=== PATIENT | male | born 2000 | race Caucasian/White ===

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

== ENCOUNTER 2024-04-30 08:59 | Inpatient (IN) ==
[2024-04-30 09:28] VITALS: BMI 20.9
--- NOTE | 2024-04-30 10:03 | DR.ABDMALE ---
HPI Time seen Time Seen by Provider: 04/30/24 09:53 PCP Primary Care Physician: nflinsey Complaint Chief Complaint:: Pt c/o lower abdominal pain x3 days, states pain increases with movement, 6/10; 4/10 at rest. Denies n/v/d; last BM 04/26/24. He states pain radiates around to right flank and describes pain as "burning" Self Treatment fo Chief Complaint: Pt was seen in ER 04/25/24, treated for Crohn's w/ antibiotics and prednisone. States he has completed the steroids, cont to take antibiotics. He took an "old hydrocodone" from a previous visit a few months ago around 1200 this AM, which helped "a little" to relieve pain COVID-19 Coronavirus risk:travel/contact w/high risk person: No Has patient experienced Coronavirus symptoms: No Source History provided by:: patient Mode of arrival Mode of Arrival: Ambulatory Timing Onset of Chief Complaint: 04/27/24 PMH PMH Past Medical History: Yes Past Medical History Comment: Crohn's disease Past Surgical History: Yes Surgical History: Tonsillectomy and Other Family History History of Family Medical Conditions: Yes Family Medical History: Hypertension Social History Does patient currently use any type of tobacco product: Yes Have you used tobacco products in the last 12 months: Yes Type of Tobacco Use: Vape Does any household member use tobacco: No Alcohol Use: Occasionally Do you use any recreational Drugs:: No Lives With: Family Lives Where: Home Travel Risk Coronavirus risk:travel/contact w/high risk person: No Has patient experienced Coronavirus symptoms: No Infectious screening In the last 2 months have you had wt loss of >10#?: NO Have you had fever, night sweats or hemotysis?: No Have you traveled outside the country in the last 6 months?: No Isolation: Standard PE Vital Signs Vital Signs: Temp Pulse Resp BP Pulse Ox O2 Del Method 04/30/24 15:03 18 04/30/24 10:18 18 04/30/24 08:59 98.8 F 97 H 16 133/80 100 Room Air ROR Labs Reviewed 04/30/24 10:15 04/30/24 10:15 Laboratory: WBC 15.4 X10^3/uL (3.6-10.0) H 04/30/24 10:15 RBC 5.19 X10^6/uL (4.7-6.0) 04/30/24 10:15 Hgb 14.6 g/dL (13.5-18.0) 04/30/24 10:15 Hct 43.2 % (42.0-54.0) 04/30/24 10:15 MCV 83.4 fL (80.0-100.0) 04/30/24 10:15 MCH 28.1 pg (27.0-34.0) 04/30/24 10:15 MCHC 33.7 g/dL (33.0-35.0) 04/30/24 10:15 RDW 13.4 % (11.6-16.5) 04/30/24 10:15 Plt Count 496 X10^3/uL (150.0-450.0) H 04/30/24 10:15 MPV 6.9 fL (7.4-11.0) L 04/30/24 10:15 Neut % (Auto) 85.6 % (42.0-75.0) H 04/30/24 10:15 Lymph % (Auto) 6.4 % (21.0-51.0) L 04/30/24 10:15 [place] % (Auto) 7.3 % (0.0-13.0) 04/30/24 10:15 Eos % (Auto) 0.5 % (0.9-2.9) L 04/30/24 10:15 Baso % (Auto) 0.2 % (0.2-1.0) 04/30/24 10:15 Neut # (Auto) 13.1 x10^3/uL (2.2-4.8) H 04/30/24 10:15 Lymph # (Auto) 1.0 X10^3/uL (1.3-2.9) L 04/30/24 10:15 [place] # (Auto) 1.1 x10^3/uL (0.3-0.8) H 04/30/24 10:15 Eos # (Auto) 0.1 x10^3/uL (0.0-0.2) 04/30/24 10:15 Baso # (Auto) 0.0 X10^3/uL (0.0-0.1) 04/30/24 10:15 Absolute Nucleated RBC 0.0 /100WBC 04/30/24 10:15 Sodium 140 mmol/L (136-145) 04/30/24 10:15 Corrected Sodium TNP 04/30/24 10:15 Potassium 3.5 mmol/L (3.5-5.1) 04/30/24 10:15 Chloride 98 mmol/L (98-107) 04/30/24 10:15 Carbon Dioxide 31.2 mmol/L (21-32) 04/30/24 10:15 BUN 16 mg/dL (7-18) 04/30/24 10:15 Creatinine 1.02 mg/dL (0.70-1.30) 04/30/24 10:15 Est GFR (MDRD) Af Amer > 60 (>60) 04/30/24 10:15 Est GFR (MDRD) Non-Af > 60 (>60) 04/30/24 10:15 Glucose 88 mg/dL (65-99) 04/30/24 10:15 Calcium 9.3 mg/dL (8.5-10.1) 04/30/24 10:15 Corrected Calcium TNP 04/30/24 10:15 Total Bilirubin 0.30 mg/dL (0.2-1.0) 04/30/24 10:15 AST 26 Units/L (15-37) 04/30/24 10:15 ALT 63 Units/L (12-78) 04/30/24 10:15 Alkaline Phosphatase 157 Units/L (46-116) H 04/30/24 10:15 Total Protein 8.4 g/dL (6.4-8.2) H 04/30/24 10:15 Albumin 3.5 g/dL (3.4-5.0) 04/30/24 10:15 Globulin 4.9 g/dL (2.5-4.5) H 04/30/24 10:15 Albumin/Globulin Ratio 0.7 Ratio (1.1-2.1) L 04/30/24 10:15 Amylase 117 Units/L (25-115) H 04/30/24 10:15 Lipase 93 Units/L (16-77) H 04/30/24 10:15 Specimen Type Clean catch urine 04/30/24 10:10 Urine Color Dark yellow (YELLOW) 04/30/24 10:10 Urine Appearance Clear (CLEAR) 04/30/24 10:10 Urine pH 6.0 (5.0 - 8.0) 04/30/24 10:10 Ur Specific [place] 1.025 (1.000-1.030) 04/30/24 10:10 Urine Protein 1+ (NEGATIVE) 04/30/24 10:10 Urine Glucose (UA) Negative (NEGATIVE) 04/30/24 10:10 Urine Ketones Negative (NEGATIVE) 04/30/24 10:10 Urine Blood Negative (NEGATIVE) 04/30/24 10:10 Urine Nitrite Negative (NEGATIVE) 04/30/24 10:10 Urine Bilirubin Negative (NEGATIVE) 04/30/24 10:10 Urine Urobilinogen 1+ (NORMAL) 04/30/24 10:10 Ur Leukocyte Esterase 1+ (NEGATIVE) 04/30/24 10:10 Urine RBC None seen /HPF (0-3) 04/30/24 10:10 Urine WBC 0-2 /HPF (0-5) 04/30/24 10:10 Ur Squamous Epith Cells Rare /HPF (NEGATIVE) 04/30/24 10:10 Urine Bacteria Trace /HPF (NEGATIVE) 04/30/24 10:10 Urine Mucus Moderate /HPF (NEGATIVE) 04/30/24 10:10 Ur Culture Indicated? No/not indicated 04/30/24 10:10 Opioid Opioid Risk Tool Age (Mario box if 16-45): Yes History of Preadolescent Sexual Abuse: No Total: 1 Total Score Risk Category: Low Risk Copyright: Edenilson HALE predicting aberrant behaviors Discharge Plan Diagnosis Discharge Problem: Abdominal pain, Inflammatory bowel diseases (IBD), Acute appendicitis, Intestinal abscess Discharge Plan Patient Disposition: ADMITTED INPATIENT Condition: Stable Orders to Discharge Patient Discharge Orders: Transfer (Routine); Ordered 04/30/24 Ordered By: CIERA TITUS
[2024-04-30] MEDS: NS 1,000 ML IV 1,000 ML IV ONE (10:17)
[2024-04-30] MEDS: ZOFRAN INJ 4 MG VIAL IVP ONE (10:17)
[2024-04-30] MEDS: DEMEROL INJ IVP ONE (10:18)
[2024-04-30 10:19] LABS: BILIRUBIN,URINE NEGATIVE (NEGATIVE); BLOOD/HEMOGLOBIN,URINE NEGATIVE (NEGATIVE); GLUCOSE, URINE NEGATIVE (NEGATIVE); KETONES,URINE NEGATIVE (NEGATIVE); LEUKOCYTE ESTERASE ,URINE 1+ (NEGATIVE); NITRITES,URINE NEGATIVE (NEGATIVE); PROTEIN,URINE 1+ (NEGATIVE); UROBILINOGEN,URINE 1+ (NORMAL)
[2024-04-30 10:21] LABS: BASOPHILS % (AUTO) 0.2 % (0.2-1.0); EOSINOPHILS # (AUTO) 0.1 x10^3/uL (0.0-0.2); EOSINOPHILS % (AUTO) 0.5 % (0.9-2.9); HEMATOCRIT 43.2 % (42.0-54.0); HEMOGLOBIN 14.6 g/dL (13.5-18.0); LYMPHOCYTES % (AUTO) 6.4 % (21.0-51.0); MEAN CORPUSCULAR HEMOGLOBIN 28.1 pg (27.0-34.0); MEAN CORPUSCULAR HGB CONC 33.7 g/dL (33.0-35.0); MEAN CORPUSCULAR VOLUME 83.4 fL (80.0-100.0); MEAN PLATELET VOLUME 6.9 fL (7.4-11.0); MONOCYTES # (AUTO) 1.1 x10^3/uL (0.3-0.8); MONOCYTES % (AUTO) 7.3 % (0.0-13.0); NEUTROPHILS # (AUTO) 13.1 x10^3/uL (2.2-4.8); NEUTROPHILS % (AUTO) 85.6 % (42.0-75.0); PLATELET COUNT 496 X10^3/uL (150.0-450.0); RED BLOOD COUNT 5.19 X10^6/uL (4.7-6.0); RED CELL DISTRIBUTION WIDTH 13.4 % (11.6-16.5); WHITE BLOOD COUNT 15.4 X10^3/uL (3.6-10.0)
[2024-04-30 10:28] LABS: APPEARANCE,URINE CLEAR (CLEAR); BACTERIA,URINE TRACE /HPF (NEGATIVE); COLOR,URINE DARK YELLOW (YELLOW); RBC,URINE NONE SEEN /HPF (0-3); SQUAMOUS EPITHELIAL CELL,UR RARE /HPF (NEGATIVE)
[2024-04-30 10:33] LABS: ALANINE AMINOTRANSFERASE 63 Units/L (12-78); ALBUMIN 3.5 g/dL (3.4-5.0); ALKALINE PHOSPHATASE 157 Units/L (46-116); ASPARTATE AMINO TRANSFERASE 26 Units/L (15-37); BLOOD UREA NITROGEN 16 mg/dL (7-18); CALCIUM 9.3 mg/dL (8.5-10.1); CARBON DIOXIDE 31.2 mmol/L (21-32); CHLORIDE 98 mmol/L (98-107); CREATININE 1.02 mg/dL (0.70-1.30); GLUCOSE 88 mg/dL (65-99); POTASSIUM 3.5 mmol/L (3.5-5.1); SODIUM 140 mmol/L (136-145); TOTAL PROTEIN 8.4 g/dL (6.4-8.2); eGFR NON BLACK RACES > 60 (>60)
[2024-04-30 11:52] LABS: AMYLASE 117 Units/L (25-115); LIPASE 93 Units/L (16-77)
[2024-04-30] MEDS: ZOSYN VIAL 4.5 GRAMS 4.5 G in NS 100 ML IV 100 ML IV ONE (14:57)
[2024-04-30] MEDS: DILAUDID INJ IVP ONE (15:03)
[2024-04-30] MEDS: READI-CAT 2 ONE (16:18)
[2024-04-30] MEDS: DILAUDID INJ IVP PRN (17:18)
[2024-04-30] MEDS: D5 1/2 NS 1,000 ML 1,000 ML IV SCH (17:21)
[2024-04-30] MEDS: NS 500 ML IV 500 ML IV ONE (17:39)
[2024-04-30] MEDS: OMNIPAQUE 350 mg/mL 100 mL BTL 100 ML ONE (17:43)
--- NOTE | 2024-04-30 18:17 | CT ---
EXAM:ABDCMEN/PELVIS WITH CONHISTORY:c/o lower abd pain x3 days, states pain increases with movement, 6/10; 4/10 at rest. Denies n/v/d; last BM 04/26/24. He states pain radiates around to right flank and describes pain as "burning";COMPARISON:04/25/2024.TECHNIQUE: r axial, coronal, and sagittal CT images were generated.FINDINGS:The lung bases are clear without effusion. Heart size is normal. The liver, gallbladder, pancreas, adrenal glands, and both kidneys are normal. The spleen is enlarged at 14.5 cm. There is urinary bladder wall thickening. Prostate measures 4.9 cm in diameter. The stomach is normal. The proximal small bowel loops are normal. Terminal ileal loops are severely thickened with narrowing of the lumen and induration of the surrounding fat. There appears to be a loculated pocket of fluid with some gas bubbles along the anterior abdominal wall which could be an abscess or fistula from the bowel. The appendix is not identified. There is some involvement of the sigmoid colon with the pelvic inflammation. There is trace free fluid in the pelvis.IMPRESSION:Severe inflammation in the right lower quadrant which appears to be involving the terminal ileum and this is suggestive of Crohn's disease. There is a non-specific loculation of fluid near the anterior abdominal wall with gas and fluid and this could be a fistula or abscess.THIS IS AN ELECTRONICALLY VERIFIED FINAL REPORT04/30/2024 6:14 PM - Electronically signed by Christiano Gaviria MD
[2024-04-30] MEDS: FLAGYL IV PREMIX 500 MG BAG 500 MG/100 ML BAG IV SCH (20:16)
[2024-04-30] MEDS: ZOSYN VIAL 4.5 GRAMS 4.5 G in NS 100 ML IV 100 ML IV SCH (21:05)
[2024-04-30] MEDS: NS 250 ML IV 25 ML IV PRN (21:06)
[2024-05-01] MEDS: TYLENOL 325 MG TAB PO PRN (04:11)
[2024-05-01 05:20] LABS: BASOPHILS # (AUTO) 0.1 X10^3/uL (0.0-0.1); BASOPHILS % (AUTO) 0.4 % (0.2-1.0); EOSINOPHILS % (AUTO) 0.3 % (0.9-2.9); HEMATOCRIT 35.3 % (42.0-54.0); LYMPHOCYTES # (AUTO) 0.8 X10^3/uL (1.3-2.9); MEAN CORPUSCULAR HGB CONC 33.9 g/dL (33.0-35.0); MEAN CORPUSCULAR VOLUME 82.7 fL (80.0-100.0); MEAN PLATELET VOLUME 7.2 fL (7.4-11.0); MONOCYTES # (AUTO) 1.5 x10^3/uL (0.3-0.8); NEUTROPHILS # (AUTO) 16.7 x10^3/uL (2.2-4.8); NEUTROPHILS % (AUTO) 87.3 % (42.0-75.0); PLATELET COUNT 416 X10^3/uL (150.0-450.0); RED BLOOD COUNT 4.26 X10^6/uL (4.7-6.0); RED CELL DISTRIBUTION WIDTH 13.3 % (11.6-16.5); WHITE BLOOD COUNT 19.1 X10^3/uL (3.6-10.0)
[2024-05-01 05:35] LABS: ALANINE AMINOTRANSFERASE 34 Units/L (12-78); ALBUMIN 2.5 g/dL (3.4-5.0); ALKALINE PHOSPHATASE 117 Units/L (46-116); ASPARTATE AMINO TRANSFERASE 11 Units/L (15-37); BLOOD UREA NITROGEN 15 mg/dL (7-18); CALCIUM 8.6 mg/dL (8.5-10.1); CARBON DIOXIDE 27.6 mmol/L (21-32); CHLORIDE 99 mmol/L (98-107); COR CA(FOR HYPOALB) 9.8 mg/dL (8.5-10.1); CREATININE 1.05 mg/dL (0.70-1.30); GLUCOSE 100 mg/dL (65-99); POTASSIUM 3.6 mmol/L (3.5-5.1); SODIUM 136 mmol/L (136-145); TOTAL PROTEIN 6.3 g/dL (6.4-8.2); eGFR NON BLACK RACES > 60 (>60)
[2024-05-01] MEDS: CONSULT PHARMACY - POTASSIUM & MAGNESIUM XX SCH (07:37)
[2024-05-01] MEDS: SOLU-Medrol 125 MG VIAL IVP SCH (08:39)
[2024-05-01] MEDS: KLOR-CON PO SCH (08:40)
[2024-05-01] MEDS: LOVENOX INJ 40 MG SYR SC SCH (08:40)
[2024-05-01] MEDS: PROTONIX INJ 40 MG VIAL IVP SCH (08:40)
--- NOTE | 2024-05-01 08:49 | DR.PROGNOT ---
HOSPITAL PROGRESS NOTE Progress Note for Day of: Progress Note Date: 05/01/24 Chief Complaint Chief Complaint: Still complaining of right lower quadrant pain but less than yesterday, moderate nausea but no vomiting, no bowel movement or rectal bleeding, passing flatus. White count is 19.1, hemoglobin 12, platelet count is 416, sed rate is 24, CRP 87, bilirubin 1.5, liver function tests are normal. CAT scan with contrast showed Crohn disease involving the terminal ileum, nonspecific fluid collection right lower quadrant, Soft and flat abdomen with localized right lower quadrant tenderness. Past Medical Family Social History Allergies: Allergies infliximab [From Remicade] Adverse Reaction (Severe, Verified 04/30/24 09:28) Vital Signs Vital Signs: Vital Signs Temperature 98.6 F Temperature 101.2 F Pulse Rate [Brachial] 108 Respiratory Rate 20 Respiratory Rate 22 Respiratory Rate 22 Respiratory Rate 22 Respiratory Rate 20 Blood Pressure [Right Arm] 111/59 O2 Sat by Pulse Oximetry 97 Physical Exam Oriented: Normal Eyes: Normal Ear: Normal Nose: Blood Throat: Normal Respiratory: Normal Cardiovascular: Normal, Irregular, Systolic and Edema Speech Pattern: Clear and Appropriate Laboratory and Diagnostics 05/01/24 04:15 05/01/24 04:15 Labs: Laboratory WBC 19.1 X10^3/uL (3.6-10.0) H 05/01/24 04:15 RBC 4.26 X10^6/uL (4.7-6.0) L 05/01/24 04:15 Hgb 12.0 g/dL (13.5-18.0) L D 05/01/24 04:15 Hct 35.3 % (42.0-54.0) L 05/01/24 04:15 MCV 82.7 fL (80.0-100.0) 05/01/24 04:15 MCH 28.0 pg (27.0-34.0) 05/01/24 04:15 MCHC 33.9 g/dL (33.0-35.0) 05/01/24 04:15 RDW 13.3 % (11.6-16.5) 05/01/24 04:15 Plt Count 416 X10^3/uL (150.0-450.0) 05/01/24 04:15 MPV 7.2 fL (7.4-11.0) L 05/01/24 04:15 Neut % (Auto) 87.3 % (42.0-75.0) H 05/01/24 04:15 Lymph % (Auto) 4.0 % (21.0-51.0) L 05/01/24 04:15 [place] % (Auto) 8.0 % (0.0-13.0) 05/01/24 04:15 Eos % (Auto) 0.3 % (0.9-2.9) L 05/01/24 04:15 Baso % (Auto) 0.4 % (0.2-1.0) 05/01/24 04:15 Neut # (Auto) 16.7 x10^3/uL (2.2-4.8) H 05/01/24 04:15 Lymph # (Auto) 0.8 X10^3/uL (1.3-2.9) L 05/01/24 04:15 [place] # (Auto) 1.5 x10^3/uL (0.3-0.8) H 05/01/24 04:15 Eos # (Auto) 0.0 x10^3/uL (0.0-0.2) 05/01/24 04:15 Baso # (Auto) 0.1 X10^3/uL (0.0-0.1) 05/01/24 04:15 Absolute Nucleated RBC 0.0 /100WBC 05/01/24 04:15 ESR 24 MM/HOUR (0-15) H 04/30/24 19:43 Sodium 136 mmol/L (136-145) 05/01/24 04:15 Corrected Sodium TNP 05/01/24 04:15 Potassium 3.6 mmol/L (3.5-5.1) 05/01/24 04:15 Chloride 99 mmol/L (98-107) 05/01/24 04:15 Carbon Dioxide 27.6 mmol/L (21-32) 05/01/24 04:15 BUN 15 mg/dL (7-18) 05/01/24 04:15 Creatinine 1.05 mg/dL (0.70-1.30) 05/01/24 04:15 Est GFR (MDRD) Af Amer > 60 (>60) 05/01/24 04:15 Est GFR (MDRD) Non-Af > 60 (>60) 05/01/24 04:15 Glucose 100 mg/dL (65-99) H 05/01/24 04:15 Lactic Acid 0.5 mmol/L (0.4-2.0) 05/01/24 08:16 Calcium 8.6 mg/dL (8.5-10.1) 05/01/24 04:15 Corrected Calcium 9.8 mg/dL (8.5-10.1) 05/01/24 04:15 Magnesium 1.9 mg/dL (2.0-2.9) L 05/01/24 04:15 Total Bilirubin 1.50 mg/dL (0.2-1.0) H 05/01/24 04:15 AST 11 Units/L (15-37) L 05/01/24 04:15 ALT 34 Units/L (12-78) 05/01/24 04:15 Alkaline Phosphatase 117 Units/L (46-116) H 05/01/24 04:15 C-Reactive Protein 87.10 mg/L (0-3.0) H 04/30/24 10:15 Total Protein 6.3 g/dL (6.4-8.2) L 05/01/24 04:15 Albumin 2.5 g/dL (3.4-5.0) L 05/01/24 04:15 Globulin 3.8 g/dL (2.5-4.5) 05/01/24 04:15 Albumin/Globulin Ratio 0.7 Ratio (1.1-2.1) L 05/01/24 04:15 Amylase 117 Units/L (25-115) H 04/30/24 10:15 Lipase 93 Units/L (16-77) H 04/30/24 10:15 Specimen Type Clean catch urine 04/30/24 10:10 Urine Color Dark yellow (YELLOW) 04/30/24 10:10 Urine Appearance Clear (CLEAR) 04/30/24 10:10 Urine pH 6.0 (5.0 - 8.0) 04/30/24 10:10 Ur Specific [place] 1.025 (1.000-1.030) 04/30/24 10:10 Urine Protein 1+ (NEGATIVE) 04/30/24 10:10 Urine Glucose (UA) Negative (NEGATIVE) 04/30/24 10:10 Urine Ketones Negative (NEGATIVE) 04/30/24 10:10 Urine Blood Negative (NEGATIVE) 04/30/24 10:10 Urine Nitrite Negative (NEGATIVE) 04/30/24 10:10 Urine Bilirubin Negative (NEGATIVE) 04/30/24 10:10 Urine Urobilinogen 1+ (NORMAL) 04/30/24 10:10 Ur Leukocyte Esterase 1+ (NEGATIVE) 04/30/24 10:10 Urine RBC None seen /HPF (0-3) 04/30/24 10:10 Urine WBC 0-2 /HPF (0-5) 04/30/24 10:10 Ur Squamous Epith Cells Rare /HPF (NEGATIVE) 04/30/24 10:10 Urine Bacteria Trace /HPF (NEGATIVE) 04/30/24 10:10 Urine Mucus Moderate /HPF (NEGATIVE) 04/30/24 10:10 Ur Culture Indicated? No/not indicated 04/30/24 10:10 Assessment and Plan 1: Crohn disease terminal ileum, possible fluid collection or early abscess formation, this will be observed closely. Added steroid IV, full liquid, To obtain basic lab work, on IV steroids and IV antibiotics hopefully will avoid surgical intervention. Advance diet. Problem Patient Problems: Patient Problems (Updated 04/30/24 @ 15:40 by CIERA TITUS) Abdominal pain (Acute) R10.9 Inflammatory bowel diseases (IBD) (Acute) K52.9 Acute appendicitis (Acute) K35.80 Intestinal abscess (Acute) K63.0
[2024-05-01] MEDS: ZOFRAN INJ 4 MG VIAL IVP PRN (09:26)
[2024-05-01] MEDS: TYLENOL 325 MG TAB PO ONE (10:16)
--- NOTE | 2024-05-01 15:06 | DR.H&P ---
H&P History & Physical for Day of: H&P Date: 04/30/24 Chief Complaint Chief Complaint: RIGHT LOWER ABDOMINAL PAIN, FEVER, DIARRHEA History of Present Illness History of Present Illness: Pt was seen in ER 04/25/24, treated for Crohn's w/ antibiotics and prednisone. States he has completed the steroids, cont to take antibiotics. He took an "old hydrocodone" from a previous visit a few months ago around 1200 this AM, which helped "a little" to relieve pain. Last colonoscopy in [address] Adame Past Surgical History Surgical History: Tonsillectomy Family History Family Medical History: Hypertension Social History Does patient currently use any type of tobacco product: Yes Have you used tobacco products in the last 12 months: Yes Type of Tobacco Use: Vape Does any household member use tobacco: No Alcohol Use: Occasionally Drug Use: None Medications Home Medications: Home Medications Medication Instructions Recorded Confirmed Type NK 03/20/21 04/30/24 History Allergies Allergies Allergy/AdvReac Type Severity Reaction Status Date / Time infliximab [From Remicade] AdvReac Severe Verified 04/30/24 09:28 Labs 05/01/24 04:15 05/01/24 04:15 Labs: Laboratory WBC 19.1 X10^3/uL (3.6-10.0) H 05/01/24 04:15 RBC 4.26 X10^6/uL (4.7-6.0) L 05/01/24 04:15 Hgb 12.0 g/dL (13.5-18.0) L D 05/01/24 04:15 Hct 35.3 % (42.0-54.0) L 05/01/24 04:15 MCV 82.7 fL (80.0-100.0) 05/01/24 04:15 MCH 28.0 pg (27.0-34.0) 05/01/24 04:15 MCHC 33.9 g/dL (33.0-35.0) 05/01/24 04:15 RDW 13.3 % (11.6-16.5) 05/01/24 04:15 Plt Count 416 X10^3/uL (150.0-450.0) 05/01/24 04:15 MPV 7.2 fL (7.4-11.0) L 05/01/24 04:15 Neut % (Auto) 87.3 % (42.0-75.0) H 05/01/24 04:15 Lymph % (Auto) 4.0 % (21.0-51.0) L 05/01/24 04:15 [place] % (Auto) 8.0 % (0.0-13.0) 05/01/24 04:15 Eos % (Auto) 0.3 % (0.9-2.9) L 05/01/24 04:15 Baso % (Auto) 0.4 % (0.2-1.0) 05/01/24 04:15 Neut # (Auto) 16.7 x10^3/uL (2.2-4.8) H 05/01/24 04:15 Lymph # (Auto) 0.8 X10^3/uL (1.3-2.9) L 05/01/24 04:15 [place] # (Auto) 1.5 x10^3/uL (0.3-0.8) H 05/01/24 04:15 Eos # (Auto) 0.0 x10^3/uL (0.0-0.2) 05/01/24 04:15 Baso # (Auto) 0.1 X10^3/uL (0.0-0.1) 05/01/24 04:15 Absolute Nucleated RBC 0.0 /100WBC 05/01/24 04:15 ESR 24 MM/HOUR (0-15) H 04/30/24 19:43 Sodium 136 mmol/L (136-145) 05/01/24 04:15 Corrected Sodium TNP 05/01/24 04:15 Potassium 3.6 mmol/L (3.5-5.1) 05/01/24 04:15 Chloride 99 mmol/L (98-107) 05/01/24 04:15 Carbon Dioxide 27.6 mmol/L (21-32) 05/01/24 04:15 BUN 15 mg/dL (7-18) 05/01/24 04:15 Creatinine 1.05 mg/dL (0.70-1.30) 05/01/24 04:15 Est GFR (MDRD) Af Amer > 60 (>60) 05/01/24 04:15 Est GFR (MDRD) Non-Af > 60 (>60) 05/01/24 04:15 Glucose 100 mg/dL (65-99) H 05/01/24 04:15 Lactic Acid 0.5 mmol/L (0.4-2.0) 05/01/24 08:16 Calcium 8.6 mg/dL (8.5-10.1) 05/01/24 04:15 Corrected Calcium 9.8 mg/dL (8.5-10.1) 05/01/24 04:15 Magnesium 1.9 mg/dL (2.0-2.9) L 05/01/24 04:15 Total Bilirubin 1.50 mg/dL (0.2-1.0) H 05/01/24 04:15 AST 11 Units/L (15-37) L 05/01/24 04:15 ALT 34 Units/L (12-78) 05/01/24 04:15 Alkaline Phosphatase 117 Units/L (46-116) H 05/01/24 04:15 C-Reactive Protein 87.10 mg/L (0-3.0) H 04/30/24 10:15 Total Protein 6.3 g/dL (6.4-8.2) L 05/01/24 04:15 Albumin 2.5 g/dL (3.4-5.0) L 05/01/24 04:15 Globulin 3.8 g/dL (2.5-4.5) 05/01/24 04:15 Albumin/Globulin Ratio 0.7 Ratio (1.1-2.1) L 05/01/24 04:15 Amylase 117 Units/L (25-115) H 04/30/24 10:15 Lipase 93 Units/L (16-77) H 04/30/24 10:15 Specimen Type Clean catch urine 04/30/24 10:10 Urine Color Dark yellow (YELLOW) 04/30/24 10:10 Urine Appearance Clear (CLEAR) 04/30/24 10:10 Urine pH 6.0 (5.0 - 8.0) 04/30/24 10:10 Ur Specific [place] 1.025 (1.000-1.030) 04/30/24 10:10 Urine Protein 1+ (NEGATIVE) 04/30/24 10:10 Urine Glucose (UA) Negative (NEGATIVE) 04/30/24 10:10 Urine Ketones Negative (NEGATIVE) 04/30/24 10:10 Urine Blood Negative (NEGATIVE) 04/30/24 10:10 Urine Nitrite Negative (NEGATIVE) 04/30/24 10:10 Urine Bilirubin Negative (NEGATIVE) 04/30/24 10:10 Urine Urobilinogen 1+ (NORMAL) 04/30/24 10:10 Ur Leukocyte Esterase 1+ (NEGATIVE) 04/30/24 10:10 Urine RBC None seen /HPF (0-3) 04/30/24 10:10 Urine WBC 0-2 /HPF (0-5) 04/30/24 10:10 Ur Squamous Epith Cells Rare /HPF (NEGATIVE) 04/30/24 10:10 Urine Bacteria Trace /HPF (NEGATIVE) 04/30/24 10:10 Urine Mucus Moderate /HPF (NEGATIVE) 04/30/24 10:10 Ur Culture Indicated? No/not indicated 04/30/24 10:10 Review of Systems Constitutional: Fever and Weakness Eyes: No Symptoms Reported ENT: No Symptoms Reported Respiratory: No Symptoms Reported Cardiovascular: No Symptoms Reported Gastrointestinal: Abdominal Pain Genitourinary: Frequency Musculoskeletal: Back Pain (right side back pain) Skin: No Symptoms Reported Neurological: No Symptoms Reported Physical Exam Vital Signs: Vital Signs Temperature 97.9 F Temperature 98.1 F Pulse Rate [Brachial] 90 Pulse Rate [Brachial] 86 Respiratory Rate 18 Respiratory Rate 20 Respiratory Rate 20 Respiratory Rate 18 Blood Pressure [Right Arm] 121/65 Blood Pressure [Right Arm] 116/64 O2 Sat by Pulse Oximetry 98 O2 Sat by Pulse Oximetry 99 Oriented: Normal Eyes: Normal Ear: Normal Nose: Normal Throat: Dry Respiratory: RLL Diminished Cardiovascular: Normal : Normal Auscultation: Bowel Sounds: Increased Palpation: Normal Tenderness: Diffuse Skin: Decreased [place] Musculoskeletal: Normal Psychiatric: Normal Mood Description: Calm Affect: Normal Speech Pattern: Clear and Appropriate Assessment/Plan (1) Exacerbation of Crohn's disease: Status: Acute Plan: admit, surgical consult IV HYDRATION, PAIN CONTROL CT ABD/PELVIS ON ADMISSION OBTAIN LAST COLONOSCOPY REPORT VERIFY HOME MEDICATIONS (2) Fever: Status: Acute
[2024-05-02 06:32] LABS: BASOPHILS % (AUTO) 0.2 % (0.2-1.0); HEMATOCRIT 32.6 % (42.0-54.0); HEMOGLOBIN 11.1 g/dL (13.5-18.0); LYMPHOCYTES # (AUTO) 0.5 X10^3/uL (1.3-2.9); LYMPHOCYTES % (AUTO) 4.2 % (21.0-51.0); MEAN CORPUSCULAR HEMOGLOBIN 28.2 pg (27.0-34.0); MEAN CORPUSCULAR VOLUME 82.8 fL (80.0-100.0); MEAN PLATELET VOLUME 7.4 fL (7.4-11.0); MONOCYTES # (AUTO) 0.2 x10^3/uL (0.3-0.8); MONOCYTES % (AUTO) 2.1 % (0.0-13.0); NEUTROPHILS # (AUTO) 10.7 x10^3/uL (2.2-4.8); NEUTROPHILS % (AUTO) 93.5 % (42.0-75.0); PLATELET COUNT 397 X10^3/uL (150.0-450.0); RED BLOOD COUNT 3.94 X10^6/uL (4.7-6.0); WHITE BLOOD COUNT 11.5 X10^3/uL (3.6-10.0)
[2024-05-02 06:43] LABS: ALANINE AMINOTRANSFERASE 44 Units/L (12-78); ALBUMIN 2.4 g/dL (3.4-5.0); ALKALINE PHOSPHATASE 157 Units/L (46-116); ASPARTATE AMINO TRANSFERASE 16 Units/L (15-37); BLOOD UREA NITROGEN 12 mg/dL (7-18); CALCIUM 9.1 mg/dL (8.5-10.1); CARBON DIOXIDE 29.9 mmol/L (21-32); CHLORIDE 103 mmol/L (98-107); COR CA(FOR HYPOALB) 10.4 mg/dL (8.5-10.1); COR NA(FOR HYPERGLY) 142 mmol/L (136-145); CREATININE 0.86 mg/dL (0.70-1.30); GLUCOSE 178 mg/dL (65-99); SODIUM 140 mmol/L (136-145); TOTAL PROTEIN 6.4 g/dL (6.4-8.2); eGFR NON BLACK RACES > 60 (>60)
[2024-05-02 07:19] LABS: BAND NEUTROPHILS % 4 % (0-10); PLATELET MORPHOLOGY COMMENT NORMAL (NORMAL)
--- NOTE | 2024-05-02 07:48 | DR.PROGNOT ---
HOSPITAL PROGRESS NOTE Progress Note for Day of: Progress Note Date: 05/02/24 Chief Complaint Chief Complaint: less pain today, , no bowel movement or rectal bleeding, passing flatus. White count is 11.5 hemoglobin 12, platelet count is 416, sed rate is 24, CRP 87, bilirubin 1.5, liver function tests are normal. seems to be improving on steroids and ABT. afebrile . Past Medical Family Social History Allergies: Allergies infliximab [From Remicade] Adverse Reaction (Severe, Verified 04/30/24 09:28) Vital Signs Vital Signs: Vital Signs Temperature 98.3 F Temperature 98 F Pulse Rate [Brachial] 67 Pulse Rate [Brachial] 84 Respiratory Rate 21 Respiratory Rate 20 Blood Pressure [Right Arm] 93/56 Blood Pressure [Right Arm] 120/56 O2 Sat by Pulse Oximetry 97 O2 Sat by Pulse Oximetry 98 Physical Exam Oriented: Normal Eyes: Normal Ear: Normal Nose: Normal Throat: Dry Respiratory: Normal Cardiovascular: Normal : Normal GI:Auscultation: Increased GI:Palpation: Normal GI: Tenderness: Diffuse and Other (soft with RLQ fullness and tenderness , BS+) Skin: Decreased Turgur Musculoskeletal: Normal Psychiatric: Normal Mood Description: Calm Affect: Normal Speech Pattern: Clear and Appropriate Laboratory and Diagnostics 05/02/24 05:11 05/02/24 05:11 Labs: Laboratory WBC 11.5 X10^3/uL (3.6-10.0) H 05/02/24 05:11 RBC 3.94 X10^6/uL (4.7-6.0) L 05/02/24 05:11 Hgb 11.1 g/dL (13.5-18.0) L 05/02/24 05:11 Hct 32.6 % (42.0-54.0) L 05/02/24 05:11 MCV 82.8 fL (80.0-100.0) 05/02/24 05:11 MCH 28.2 pg (27.0-34.0) 05/02/24 05:11 MCHC 34.0 g/dL (33.0-35.0) 05/02/24 05:11 RDW 13.0 % (11.6-16.5) 05/02/24 05:11 Plt Count 397 X10^3/uL (150.0-450.0) 05/02/24 05:11 Plt Count Comment Adequate (ADEQUATE) 05/02/24 05:11 MPV 7.4 fL (7.4-11.0) 05/02/24 05:11 Neut % (Auto) 93.5 % (42.0-75.0) H 05/02/24 05:11 Lymph % (Auto) 4.2 % (21.0-51.0) L 05/02/24 05:11 [place] % (Auto) 2.1 % (0.0-13.0) 05/02/24 05:11 Eos % (Auto) 0.0 % (0.9-2.9) L 05/02/24 05:11 Baso % (Auto) 0.2 % (0.2-1.0) 05/02/24 05:11 Neut # (Auto) 10.7 x10^3/uL (2.2-4.8) H 05/02/24 05:11 Lymph # (Auto) 0.5 X10^3/uL (1.3-2.9) L 05/02/24 05:11 [place] # (Auto) 0.2 x10^3/uL (0.3-0.8) L 05/02/24 05:11 Eos # (Auto) 0.0 x10^3/uL (0.0-0.2) 05/02/24 05:11 Baso # (Auto) 0.0 X10^3/uL (0.0-0.1) 05/02/24 05:11 Absolute Nucleated RBC 0.0 /100WBC 05/02/24 05:11 Total Counted 100 05/02/24 05:11 Neutrophils % (Manual) 90 % (39-76) H 05/02/24 05:11 Band Neutrophils % 4 % (0-10) 05/02/24 05:11 Lymphocytes % (Manual) 4 % (13-43) L 05/02/24 05:11 Monocytes % (Manual) 2 % (4-9) L 05/02/24 05:11 Plt Morphology Comment Normal (NORMAL) 05/02/24 05:11 RBC Morphology Normal (NORMAL) 05/02/24 05:11 ESR 24 MM/HOUR (0-15) H 04/30/24 19:43 Sodium 140 mmol/L (136-145) 05/02/24 05:11 Corrected Sodium 142 mmol/L (136-145) 05/02/24 05:11 Potassium 4.0 mmol/L (3.5-5.1) 05/02/24 05:11 Chloride 103 mmol/L (98-107) 05/02/24 05:11 Carbon Dioxide 29.9 mmol/L (21-32) 05/02/24 05:11 BUN 12 mg/dL (7-18) 05/02/24 05:11 Creatinine 0.86 mg/dL (0.70-1.30) 05/02/24 05:11 Est GFR (MDRD) Af Amer > 60 (>60) 05/02/24 05:11 Est GFR (MDRD) Non-Af > 60 (>60) 05/02/24 05:11 Glucose 178 mg/dL (65-99) H 05/02/24 05:11 Lactic Acid 0.5 mmol/L (0.4-2.0) 05/01/24 08:16 Calcium 9.1 mg/dL (8.5-10.1) 05/02/24 05:11 Corrected Calcium 10.4 mg/dL (8.5-10.1) H 05/02/24 05:11 Magnesium 1.9 mg/dL (2.0-2.9) L 05/01/24 04:15 Total Bilirubin 0.40 mg/dL (0.2-1.0) 05/02/24 05:11 AST 16 Units/L (15-37) 05/02/24 05:11 ALT 44 Units/L (12-78) 05/02/24 05:11 Alkaline Phosphatase 157 Units/L (46-116) H 05/02/24 05:11 C-Reactive Protein 87.10 mg/L (0-3.0) H 04/30/24 10:15 Total Protein 6.4 g/dL (6.4-8.2) 05/02/24 05:11 Albumin 2.4 g/dL (3.4-5.0) L 05/02/24 05:11 Globulin 4.0 g/dL (2.5-4.5) 05/02/24 05:11 Albumin/Globulin Ratio 0.6 Ratio (1.1-2.1) L 05/02/24 05:11 Amylase 117 Units/L (25-115) H 04/30/24 10:15 Lipase 93 Units/L (16-77) H 04/30/24 10:15 Specimen Type Clean catch urine 04/30/24 10:10 Urine Color Dark yellow (YELLOW) 04/30/24 10:10 Urine Appearance Clear (CLEAR) 04/30/24 10:10 Urine pH 6.0 (5.0 - 8.0) 04/30/24 10:10 Ur Specific [place] 1.025 (1.000-1.030) 04/30/24 10:10 Urine Protein 1+ (NEGATIVE) 04/30/24 10:10 Urine Glucose (UA) Negative (NEGATIVE) 04/30/24 10:10 Urine Ketones Negative (NEGATIVE) 04/30/24 10:10 Urine Blood Negative (NEGATIVE) 04/30/24 10:10 Urine Nitrite Negative (NEGATIVE) 04/30/24 10:10 Urine Bilirubin Negative (NEGATIVE) 04/30/24 10:10 Urine Urobilinogen 1+ (NORMAL) 04/30/24 10:10 Ur Leukocyte Esterase 1+ (NEGATIVE) 04/30/24 10:10 Urine RBC None seen /HPF (0-3) 04/30/24 10:10 Urine WBC 0-2 /HPF (0-5) 04/30/24 10:10 Ur Squamous Epith Cells Rare /HPF (NEGATIVE) 04/30/24 10:10 Urine Bacteria Trace /HPF (NEGATIVE) 04/30/24 10:10 Urine Mucus Moderate /HPF (NEGATIVE) 04/30/24 10:10 Ur Culture Indicated? No/not indicated 04/30/24 10:10 FADY Screen Negative (NEGATIVE) 04/30/24 13:38 Assessment and Plan 1: Crohn disease of the terminal ileum, possible fluid collection or early abscess formation, this will be observed closely. To obtain basic lab work, on IV steroids and IV antibiotics . bland diet . Problem Patient Problems: Patient Problems Abdominal pain (Acute) R10.9 Inflammatory bowel diseases (IBD) (Acute) K52.9 Acute appendicitis (Acute) K35.80 Intestinal abscess (Acute) K63.0
[2024-05-03 05:47] LABS: BASOPHILS % (AUTO) 0.1 % (0.2-1.0); HEMATOCRIT 33.5 % (42.0-54.0); HEMOGLOBIN 11.2 g/dL (13.5-18.0); LYMPHOCYTES # (AUTO) 0.5 X10^3/uL (1.3-2.9); LYMPHOCYTES % (AUTO) 3.7 % (21.0-51.0); MEAN CORPUSCULAR HEMOGLOBIN 27.8 pg (27.0-34.0); MEAN CORPUSCULAR HGB CONC 33.5 g/dL (33.0-35.0); MEAN PLATELET VOLUME 7.3 fL (7.4-11.0); MONOCYTES # (AUTO) 0.4 x10^3/uL (0.3-0.8); MONOCYTES % (AUTO) 2.7 % (0.0-13.0); NEUTROPHILS # (AUTO) 13.6 x10^3/uL (2.2-4.8); NEUTROPHILS % (AUTO) 93.5 % (42.0-75.0); PLATELET COUNT 394 X10^3/uL (150.0-450.0); RED BLOOD COUNT 4.04 X10^6/uL (4.7-6.0); RED CELL DISTRIBUTION WIDTH 13.2 % (11.6-16.5); WHITE BLOOD COUNT 14.6 X10^3/uL (3.6-10.0)
[2024-05-03 06:00] LABS: ALANINE AMINOTRANSFERASE 33 Units/L (12-78); ALBUMIN 2.5 g/dL (3.4-5.0); ALKALINE PHOSPHATASE 136 Units/L (46-116); ASPARTATE AMINO TRANSFERASE 10 Units/L (15-37); BLOOD UREA NITROGEN 12 mg/dL (7-18); CALCIUM 8.7 mg/dL (8.5-10.1); CHLORIDE 107 mmol/L (98-107); COR CA(FOR HYPOALB) 9.9 mg/dL (8.5-10.1); COR NA(FOR HYPERGLY) 145 mmol/L (136-145); CREATININE 0.85 mg/dL (0.70-1.30); GLUCOSE 165 mg/dL (65-99); SODIUM 143 mmol/L (136-145); TOTAL PROTEIN 6.4 g/dL (6.4-8.2); eGFR NON BLACK RACES > 60 (>60)
[2024-05-03 06:18] LABS: BAND NEUTROPHILS % 4 % (0-10); PLATELET MORPHOLOGY COMMENT NORMAL (NORMAL)
[2024-05-03 12:07] VITALS: BP 116/58; PULSE 56; RESP 18; TEMP 97.6; O2SAT 100
--- NOTE | 2024-05-03 16:36 | DR.CONSULT ---
Consult - Consultation for Day of: Date: 05/03/24 (GI) - Chief Complaint Chief Complaint: Patient is a 24 y/o male who is referred for Crohn's. Patient is currently on IV antibiotics, including IV Flagyl. Currently feels better. Patient has been on Humira and Remicade in the past. However, quit because of insurance authorization problems. He has not been on any biologics for 2-3 years. Patient has known history of Crohns disease which was diagnosed on CT scan and being treated with steroids. The patient was followed by Dr. Jorge office and was supposed to have some further testing. The patient was in the emergency room three days ago and he had an abdominal and pelvic CT scan which showed inflammatory bowel disease and was placed on steroids. The patient came today with persistent pain in the right lower quadrant which was described by the patient as constant with episodes of. increased intensity. He denies nausea and vomiting. He has slightly loose bowel movements but he did not have any bowel movements for the past few days. The patient had some weight loss, about 20 lbs, over the past few months. - Past Surgical History Surgical History: Tonsillectomy - Family History Family Medical History: Hypertension - Social History Does patient currently use any type of tobacco product: Yes Have you used tobacco products in the last 12 months: Yes Type of Tobacco Use: Vape Does any household member use tobacco: No Alcohol Use: Occasionally Drug Use: None - Medications Home Medications: infliximab [From Remicade] Adverse Reaction (Severe, Verified 04/30/24 09:28) New Prescriptions ciprofloxacin HCl 500 mg tablet (Cipro) 500 mg PO Q12H #20 tabs 05/03/24 [Rx] metronidazole 375 mg capsule (Flagyl) 750 mg PO BID #40 caps 05/03/24 [Rx] prednisone 5 mg tablet,delayed release 10 mg PO BID #60 tabs 05/03/24 [Rx] - Review of Systems Constitutional: denies: No Symptoms Reported, See HPI, Fever, Chills, Sweats, Weakness, Malaise, Other Eyes: denies: No Symptoms Reported, See HPI, Pain, Vision Change, Conjunctivae Inflammation, Eyelid Inflammation, Redness, Other ENT: denies: No Symptoms Reported, See HPI, Ear Pain, Ear Discharge, Nose Pain, Nose Discharge, Nose Congestion, Mouth Pain, Mouth Swelling, Throat Pain, Throat Swelling, Other Respiratory: denies: No Symptoms Reported, See HPI, Cough, Dry, Shortness of Breath, Hemoptysis, SOB with Excertion, Pleuritic Pain, Sputum, Wheezing, Other Cardiovascular: denies: No Symptoms Reported, Chest Pain, See HPI, Palpitations, Orthopnea, Paroxysmal Noc. Dyspnea, Edema, Light Headedness, Other Gastrointestinal: Abdominal Pain. denies: No Symptoms Reported, See HPI, Nausea, Vomiting, Diarrhea, Constipation, Melena, Hematochezia, Other Genitourinary: No Symptoms Reported. denies: See HPI, Dysuria, Frequency, Incontinence, Hematuria, Retention, Other Musculoskeletal: No Symptoms Reported. denies: See HPI, Shoulder Pain, Arm Pain, Back Pain, Hand Pain, Leg Pain, Foot Pain, Neck Pain, Other Skin: No Symptoms Reported. denies: See HPI, Rash, Lesions, Jaundice, Bruising, Wound, Ecchymosis, Other Neurological: denies: No Symptoms Reported, See HPI, Weakness, Numbness, Incoordination, Change in Speech, Confusion, Seizures, Other - Physical Exam Vital Signs: Vital Signs Temperature 97.6 F Pulse Rate [Brachial] 56 Pulse Rate 86 Respiratory Rate 18 Blood Pressure [Right Arm] 116/58 O2 Sat by Pulse Oximetry 100 O2 Sat by Pulse Oximetry 99 Oriented: Normal. negative: Time, Person, Place, Not Oriented, Unable to test, Other Eyes: Normal. negative: Blurred Vision, Diplopia, Discharge, Pain, Redness, Photophobia, Other Ear: Normal. negative: Right, Left, Swelling, Ecchymosis, Hemotypanum, Abrasion, Laceration Nose: Normal. negative: Injected, Discharge, Blood, Other Throat: negative: Normal, Tonsillar Hypertrophy, Red, Exudate, Dry, Other Respiratory: Clear Throughout. negative: Diminished Throughout, Rhonchi Throughout, Rales Throughout, Wheezes Throughout, RUL Clear, RML Clear, RLL Clear, JAMIA Clear, LML Clear, LLL Clear, RUL Diminished, RML Diminished, RLL Diminished, JAMIA Diminished, LML Diminished, LLL Diminished, RUL Absent, RML Absent, RLL Absent, JAMIA Absent, LML Absent, LLL Absent, RUL Rhonchi, RML Rhonchi, RLL Rhonchi, JAMIA Rhonchi, LML Rhonchi, LLL Rhonchi, RUL Insp. Wheeze, RML Insp. Wheeze, RLL Insp. Wheeze, JAMIA Insp.Wheeze, LML Insp.Wheeze, LLL Insp.Wheeze, RUL Exp. Wheeze, RML Exp. Wheeze, RLL Exp. Wheeze, JAMIA Exp. Wheeze, LML Exp. Wheeze, LLL Exp. Wheeze, RUL Rales, RML Rales, RLL Rales, JAMIA Rales, LML Rales, LLL Rales, RUL Rub, RML Rub, RLL Rub, JAMIA Rub, LML Rub, LLL Rub, RUL Squeak, RML Squeak, RLL Squeak, JAMIA Squeak, LML Squeak, LLL Squeak Cardiovascular: Normal. negative: Tachycardia, Bradycardia, Irregular, S3, S4, Systolic, Diastolic, Murmur, Edema, Other : Normal. negative: Dysuria, Hematuria, Frequency, Discharge, Testicular Pain, Bleeding, , Other Auscultation: Bowel Sounds: Normal. negative: Bruit, Absent, Increased, De creased, High Pitched, Other Palpation: negative: Normal, Spleen Enlarged, Liver Enlarged, Mass Pulsatile, Other Tenderness: RLQ. negative: Normal, Diffuse, RUQ, LUQ, LLQ, Epigastric, Periumbilical, Suprapubic, Mild, Moderate, Severe, Rebound, Guarding, Rigidity, Other Skin: Normal. negative: Decreased Turgur, Rash, Papular, Macular, Maculopapular, Vesicular, Pustular, Petechial, Red, Tender, Hot, Diaphoresis, Wound, Bruising, Ecchymosis, Other Musculoskeletal: Normal. negative: Right, Left, Shoulder, Clavicle, Arm, Elbow, Forearm, Wrist, Hand, Hip, Thigh, Knee, Leg, Ankle, Foot, Back:Thoracic, Back:Lumbar, Back:Midline, Back:Paraspinous, Pelvis, Swelling, Tender, Deformity, Pulse Deficit, Motor Deficit, Sensory Deficit, Instability, Crepitance Psychiatric: Normal. negative: Anxiety, Depression, Agitation, Other Mood Description: Calm. negative: Angry, Apathetic, Depressed, Fearful, Flat, Happy, Hostile, Sad, Suspicious, Withdrawn, Anxious, Appropriate, Labile Affect: Normal. negative: Angry, Anxious, Depressed, Flat, Hysterical, Quiet, Violent Speech Pattern: Clear, Appropriate. negative: Unclear, Inappropriate, Delayed, Slurred, Excessive, Aphasic, Artificially Ventilated, Trach(not ventilated), Unable to speak - Plan Plan: Assessment. 1. Crohn's disease with possible fistula/abscess in RLQ. Plan: Continue 2 weeks of Cipro and Flagyl as prescribed. Patient will also continue Prednisone 10mg BID. CT will be repeated in 4-[address] findings improve, he will need biological treatment. We have applied for Rinvoq authorization, and will commence once approved. In case of worsening of symptoms, patient may need ileocecectomy. Above was discussed in detail with patient, he understands well and agrees with plan. Patient seen and examined by Dr. Adame - Allergies Allergies/Adverse Reactions: Allergies Allergy/AdvReac Type Severity Reaction Status Date / Time infliximab [From Remicade] AdvReac Severe Verified 04/30/24 09:28
== END 2024-05-03 14:20 | disposition home or self-care (01) | DRG 387 ==
LOC: ER 08:59 → MED/SURG 15:51
PROVIDERS: ADMIT Internal Medicine; ATTEND Internal Medicine
DX: K50.014 Crohn's disease of small intestine with abscess; K52.89 Other specified noninfective gastroenteritis and colitis; R10.84 Generalized abdominal pain; R79.82 Elevated C-reactive protein (CRP); E83.42 Hypomagnesemia; Z72.0 Tobacco use; R50.9 Fever, unspecified; R70.0 Elevated erythrocyte sedimentation rate